=== PATIENT | female | born 1990 | race Caucasian/White ===

== ENCOUNTER → 2023-08-23 16:25 | Outpatient (REF) | payer OTHER, SELFPAY | LOC: PNTC 16:25 | PROVIDERS: ATTENDING PHYSICIAN Obstetrics & Gynecology | DX: O09.529 Supervision of elderly multigravida, unspecified trimester (principal) | CPT/HCPCS: 76816 ==

== ENCOUNTER → 2023-09-06 15:43 | Outpatient (REF) | payer OTHER, SELFPAY | LOC: PNTC 15:43 | PROVIDERS: ATTENDING PHYSICIAN Obstetrics & Gynecology | DX: Z34.92 Encounter for supervision of normal pregnancy, unspecified, second trimester (principal) | CPT/HCPCS: 36415; 86850; 86900; 86901; J2790 ==

== ENCOUNTER → 2023-10-08 16:00 | Outpatient (REF) | payer OTHER, SELFPAY | LOC: PNTC 16:00 | PROVIDERS: ATTENDING PHYSICIAN Obstetrics & Gynecology | DX: O09.529 Supervision of elderly multigravida, unspecified trimester (principal) | CPT/HCPCS: 76816 ==

== ENCOUNTER → 2023-10-30 17:30 | Outpatient (REF) | payer OTHER, SELFPAY | LOC: PNTC 17:30 | PROVIDERS: ATTENDING PHYSICIAN Obstetrics & Gynecology | DX: O36.8190 Decreased fetal movements, unspecified trimester, not applicable or unspecified (principal) | CPT/HCPCS: 59025; 76815 ==

== ENCOUNTER 2023-12-05 19:33 | Inpatient (IN) | payer OTHER, SELFPAY ==
[2023-12-05 19:53] VITALS: BP 130/73; BMI 36.6
[2023-12-05 20:50] LABS: % Basophils 0.3 % (0-2); % Eosinophils 1.3 % (0-6); % Immature Granulocytes 0.5 % (0-0.5); % Monocytes 4.8 % (1.7-9.3); % Neutrophils 76.1 % (42.2-75.2); Absolute Eosinophils 0.1 10^3/uL (0-0.7); Absolute Immature Granulocytes 0.1 10^3/uL (0-0.05); Absolute Lymphocytes 1.9 10^3/uL (1.2-3.4); Absolute Monocytes 0.5 10^3/uL (0.1-0.6); Absolute Neutrophils 8.5 10^3/uL (1.4-6.5); Hematocrit 30.1 % (37.0-47.0); Hemoglobin 10.6 g/dL (12.0-16.0); Mean Corp Hgb Conc. 35.2 g/dL (33.0-37.0); Mean Corpuscular Hgb 30.3 pg (27.0-31.0); Mean Platelet Volume 11.8 fL (7.4-10.4); Nucleated Red Blood Cells % 0 %; Platelet Count 167 10^3/uL (130-400); Red Cell Dist. Width 13.4 % (11.5-14.5); White Blood Cell Count 11.2 10^3/uL (4.8-10.8)
[2023-12-05] MEDS: CYTOTEC 50 MICROGRAM VAG (21:21)
[2023-12-06] MEDS: BRETHINE 250 MCG SC (02:03)
[2023-12-06] MEDS: MORPHINE SULFATE 2 MG IV (03:27)
[2023-12-06] MEDS: LR 1000 IV ×3 (03:34→17:00)
[2023-12-06] MEDS: FENTANYL/BUPIVACAINE 100 EPIDURAL ×2 (09:53→17:05)
[2023-12-06] MEDS: SUBLIMAZE 100 MCG EPIDURAL (09:53)
[2023-12-06] MEDS: PITOCIN 30 UNITS/NSS 500 ML IV (14:40)
[2023-12-06] MEDS: PEPCID 40 MG PO (18:39)
[2023-12-07] MEDS: BICITRA 30 ML PO (00:12)
[2023-12-07] MEDS: LR 1000 IV (00:12)
[2023-12-07] MEDS: ANCEF 10 IV (00:12)
[2023-12-07] MEDS: TYLENOL 1000 MG PO (00:12)
[2023-12-07] MEDS: ZITHROMAX INFUSION 250 IV (00:13)
[2023-12-07] MEDS: TORADOL 15 MG IV ×3 (06:20→19:21)
--- NOTE | 2023-12-07 08:02 | W.PN.ANS.POP ---
Anesthesia Post Operative
- Anesthesia Post Op Note
Vital Signs Stable-See Nursing Note: Yes
Airway Patent: Yes
Adequate Pain Control: Yes
Change in Mental Status: No
Current Postoperative Nausea & Vomiting: No
Anesthesia Complications: No
General Anesthetic Recall: No
Unplanned Admission: No
Post Op Hydration Adequate: Yes
- -
Pt awake and alert- resting comfortably with no anesthesia related c/o at time of post op visit.
[2023-12-07] MEDS: SENOKOT-S 1 TABLET PO (08:16)
[2023-12-07] MEDS: MYLICON 80 MG PO (08:16)
[2023-12-07] MEDS: PRENATAL PLUS 1 TABLET PO (08:16)
[2023-12-08] MEDS: TORADOL 15 MG IV (01:09)
[2023-12-08 05:35] LABS: Hemoglobin 7.9 g/dL (12.0-16.0); Mean Corp Hgb Conc. 34.3 g/dL (33.0-37.0); Mean Corpuscular Hgb 30.5 pg (27.0-31.0); Mean Corpuscular Volume 88.8 fL (81.0-99.0); Mean Platelet Volume 11.3 fL (7.4-10.4); Platelet Count 136 10^3/uL (130-400); Red Blood Cell Count 2.59 10^6/uL (4.20-5.40)
[2023-12-08] MEDS: TYLENOL 650 MG PO ×3 (08:20→23:08)
[2023-12-08] MEDS: PRENATAL PLUS 1 TABLET PO (08:20)
[2023-12-08] MEDS: SENOKOT-S 1 TABLET PO (08:20)
[2023-12-08] MEDS: MOTRIN 600 MG PO ×3 (08:20→23:08)
--- NOTE | 2023-12-09 00:47 | W.DS.TRANS ---
DC Summary - [employer]
-
Discharge Instructions:
Discharge Diagnosis/Procedures term delivered; s/p primary low-
transverse section
Anemia
Instructions:
Stand-Alone Forms: LDRP Delivery
Changes to Home Medications: No
Discharge Medications:
DC Medications w/original date entered in [facility]
prenat.vits,jovani,uco-rqsj-jbajj 1 tab PO DAILY 12/05/23
acetaminophen 325 mg tablet 650 mg (2 x 325 mg) PO Q4HPRN PRN mild pain #0 tabs 12/09/23
ferrous sulfate 325 mg (65 mg iron) tablet (FeroSul) 325 mg PO DAILY #0 tabs 12/09/23
ibuprofen 600 mg tablet 600 mg PO Q6HPRN PRN cramps #60 tabs 12/09/23
oxycodone 5 mg tablet 5 mg PO Q4H PRN severe pain #7 tabs 12/09/23
sennosides 8.6 mg-docusate sodium 50 mg tablet (Stool Softener-Stimulant Laxative) 1 tab PO DAILYPRN PRN constipation #0 tabs 12/09/23
Home Medication Changes
Pending Results: No
Total time spent discharging patient (in min): 20
[2023-12-09] MEDS: TYLENOL 650 MG PO ×2 (05:58→11:50)
[2023-12-09] MEDS: MOTRIN 600 MG PO ×2 (05:58→11:50)
[2023-12-09] MEDS: FEOSOL 325 MG PO (08:10)
[2023-12-09] MEDS: PRENATAL PLUS 1 TABLET PO (08:11)
[2023-12-11 14:20] LABS: Syphilis/T. pallidum Ab Reflex Negative (Negative)
== END 2023-12-09 14:56 | disposition home or self-care (01) | DRG 788 ==
LOC: LDRP 19:33
PROVIDERS: Obstetrics & Gynecology; ADMITTING PHYSICIAN Obstetrics & Gynecology
PROC: 3E0P7VZ Introduction of Hormone into Female Reproductive, Via Natural or Artificial Opening (ICD-10-PCS; 2023-12-05)
PROC: 10D00Z1 Extraction of Products of Conception, Low, Open Approach (ICD-10-PCS; 2023-12-07)
DX: O48.0 Post-term pregnancy (principal); Z37.0 Single live birth; O43.193 Other malformation of placenta, third trimester; O62.0 Primary inadequate contractions; O99.02 Anemia complicating childbirth; O99.344 Other mental disorders complicating childbirth; F90.9 Attention-deficit hyperactivity disorder, unspecified type; D50.9 Iron deficiency anemia, unspecified; Z3A.41 41 weeks gestation of pregnancy
CPT/HCPCS: 88307; 85025; 85027; 86780; 86850; 86900; 86901